=== PATIENT | male | born 1995 | race African-American/Black ===

== ENCOUNTER 2021-10-14 15:53 | Emergency (ER) | payer MEDICAID ==
[~2021-10-14] VITALS: Ht 170.2 cm; Wt 78.0 kg
[2021-10-14] MEDS ORDERED: ACYC200C31 PO (18:31)
[2021-10-14 19:57] VITALS: BP 112/75
== END 2021-10-14 19:57 | disposition home or self-care (01) ==
LOC: ER 15:53
DX: B00.1 Herpesviral vesicular dermatitis (principal); U07.1 COVID-19; Z98.890 Other specified postprocedural states
CPT/HCPCS: 71045; 93005; 99283